=== PATIENT | female | born 2000 | race Caucasian/White ===

== ENCOUNTER 2020-08-07 20:40 | Inpatient (IN) | payer OTHER ==
[2020-08-07] MEDS: LACTATED RINGERS 1,000 ML IV SCH (20:58)
[2020-08-07] MEDS ORDERED: LIDOCAINE 0.5% (PF) 5 MG/ML (50 ML SDV) SQ PRN (20:59)
[2020-08-07] MEDS ORDERED: METHYLERGONOVINE 0.2 MG/ML 1 ML AMP IM PRN (20:59)
[2020-08-07] MEDS ORDERED: CARBOPROST TROMETHAMINE 250 MCG/ML 1 ML AMP IM PRN (20:59)
[2020-08-07] MEDS ORDERED: OXYTOCIN 10 UNIT/ML 1 ML VIAL IM PRN (20:59)
[2020-08-07] MEDS ORDERED: TERBUTALINE 1 MG/ML VIAL SQ PRN (20:59)
[2020-08-07] MEDS ORDERED: OXYTOCIN 30 UNITS/500 ML NS 30 UNIT in SALINE 1 500ML.BAG IV SCH (21:00)
[2020-08-07] MEDS ORDERED: LACTATED RINGERS 1,000 ML IV SCH (21:00)
[2020-08-07 21:08] LABS: Basophils % (A) 0 %; Eosinophils % (A) 0 %; HCT 40.4 % (34.0-46.0); HGB 13.1 gm/dL (11.4-16.0); Lymphocytes # (A) 2.1 k/uL (1.0-4.8); Lymphocytes % (A) 20 %; MCH 26.6 pg (25.0-35.0); MCHC 32.3 g/dL (31.0-37.0); MCV 82.2 fL (80.0-100.0); Mean Platelet Volume 10.7; Monocytes # (A) 0.5 k/uL (0-1.0); Monocytes % (A) 4 %; Neutrophils # (A) 7.7 k/uL (1.3-7.7); Neutrophils % (A) 74 %; Platelet Count 241 k/uL (150-450); RBC 4.92 m/uL (3.80-5.40); RDW 13.5 % (11.5-15.5); WBC 10.4 k/uL (3.8-10.6)
[2020-08-07] MEDS ORDERED: BUTORPHANOL 1 MG/ML 1 ML VIAL IV PRN (21:42)
[2020-08-07 21:47] VITALS: RESP 16
[2020-08-07 21:52] LABS: ALT 56 U/L (4-34); AST 35 U/L (14-36); African American GFR (CKD) >90 (>60 ml/min/1.73 sqM); Blood Urea Nitrogen 11 mg/dL (7-17); LDH 512 U/L (313-618); Non-African American GFR(CKD) >90 (>60 ml/min/1.73 sqM)
[2020-08-07 22:09] LABS: INR 0.9 (<1.2); Partial Thromboplastin Time 24.5 sec (22.0-30.0); Prothrombin Time 9.3 sec (9.0-12.0)
[2020-08-07 23:04] LABS: Appearance,Urine Clear (Clear); Bilirubin,Urine Negative (Negative); Blood,Urine Small (Negative); Color,Urine Yellow; Glucose,Urine (UA) Negative (Negative); Ketones,Urine Negative (Negative); Leukocyte Esterase,Urine Negative (Negative); Mucus,Urine Rare /hpf; Nitrite,Urine Negative (Negative); Protein,Urine 1+ (Negative); RBC,Urine 21 /hpf (0-5); Specific Gravity,Urine 1.024 (1.001-1.035); Squamous Epithelial Cell,Urine 1 /hpf (0-4); Urobilinogen,Urine <2.0 mg/dL (<2.0); WBC,Urine 2 /hpf (0-5)
[2020-08-07 23:07] LABS: Creatinine,Urine Random 147.9 mg/dL; Protein/Creatinine Ratio,Urine 0.426
[2020-08-08] MEDS: LACTATED RINGERS 1,000 ML IV SCH (00:38)
[2020-08-08] MEDS ORDERED: ROPIVACAINE 100 MG, fentaNYL (PF). 200 MCG in SODIUM CHLORIDE 0.9% 76 ML EPIDURAL ONE (01:03)
--- NOTE | 2020-08-08 06:26 | P.HPOB ---
History of Present Illness H&P Date: 08/08/20 Chief Complaint: Contractions This patient is a pleasant 20-year-old 1 para 0 female estimated date of confinement 08/11/2020 estimated gestational age 39-4/7 weeks presents to labor and delivery complaining of contractions. Patient's care has been uncomplicated with the exception of a simple ovarian cyst about 5-6 cm. He also had a choroid plexus cyst was evaluated by maternal medicine and was all negative including a cardiac echo. Patient is also noted to have some elevated blood pressures on admission, preeclampsia labs does show an elevated PC ratio and uric acid of 7.1. These blood pressures however come down and may very well be due to excessive pain. Patient is now 6-7 cm dilated. Review of Systems Genitourinary: Reports Menstruation: Reports amenorrhea Past Medical History Past Medical History: No Reported History History of Any Multi-Drug Resistant Organisms: None Reported Past Surgical History: No Surgical Hx Reported Past Anesthesia/Blood Transfusion Reactions: No Reported Reaction Past Psychological History: No Psychological Hx Reported Smoking Status: Former smoker Past Alcohol Use History: None Reported Past Drug Use History: None Reported - Past Family History Mother Family Medical History: No Reported History Medications and Allergies Home Medications Medication Instructions Recorded Confirmed Type Cholecalciferol (Vitamin D3) 1 tab PO ONCE 08/07/20 08/07/20 History [Vitamin D3] Pnv No.95/Ferrous Fum/Folic AC 1 tab PO ONCE 08/07/20 08/07/20 History [ Multivitamin Tablet] Allergies Allergy/AdvReac Type Severity Reaction Status Date / Time No Known Allergies Allergy Verified 08/07/20 20:54 Exam Vital Signs Temp Pulse Resp BP Pulse Ox 08/07/20 21:22 97.8 F 108 H 16 150/93 98 08/07/20 20:59 97.6 F 108 H 16 150/93 98 Intake and Output 08/07/20 08/07/20 08/08/20 14:59 22:59 06:59 Other: # Voids 1 Weight 94.347 kg - OBG Physical Exam Abdomen: bowel sounds normal, no diffuse tenderness, no bruit present, no guarding noted, no hepatomegaly, no splenomegaly, no mass Vulva: both: normal Vagina: normal moisture, no discharge Cervix: no lesion (Cervix 6-7 cm dilated vertex presentation.), no discharge Uterus: enlarged (Fundal height is consistent with a term ) Results blood work shows she is O positive, rubella immune, RPR is nonreactive, hepatitis B is negative, group B strep was negative, ultrasounds have been normal including a level III ultrasound. Patient does have a 5-6 cm simple ovarian cyst. Result Diagrams: 08/07/20 20:55 08/07/20 21:15 Abnormal Lab Results - Last 24 Hours (Table) 08/07/20 08/07/20 Range/Units 21:15 22:39 ALT 56 H (4-34) U/L Urine Protein 1+ H (Negative) Urine Blood Small H (Negative) Urine RBC 21 H (0-5) /hpf Urine Mucus Rare H (None) /hpf Assessment and Plan Assessment: This is a pleasant 20-year-old 1 para 0 female 39-4/7 weeks gestation admitted in active labor. Patient also has some gestational hypertension and certainly will watch closely for evidence of preeclampsia. Patient also has been meconium-stained fluid. Plan at this time is anticipate vaginal delivery. Alert anesthesia and pediatrics to the meconium-stained fluid at the time of danni back. (1) 39 weeks gestation of Current Visit: Yes Status: Acute Code(s): Z3A.39 - 39 WEEKS GESTATION OF SNOMED Code(s): 80085165 (2) Normal labor Current Visit: Yes Status: Acute Code(s): O80 - ENCOUNTER FOR FULL-TERM UNCOMPLICATED DELIVERY; Z37.9 - OUTCOME OF DELIVERY, UNSPECIFIED SNOMED Code(s): 34936710 (3) Gestational hypertension Current Visit: Yes Status: Acute Code(s): O13.9 - GESTATIONAL HTN W/O SIGNIFICANT PROTEINURIA, UNSP TRIMESTER SNOMED Code(s): 054218936 (4) Thin meconium stained amniotic fluid Current Visit: Yes Status: Acute Code(s): P96.83 - MECONIUM STAINING SNOMED Code(s): 830773570
[2020-08-08] MEDS ORDERED: LANOLIN CREAM 5 GM TUBE TOPICAL PRN (10:48)
[2020-08-08] MEDS ORDERED: bisacodyL 10 MG SUPP RECTAL PRN (10:48)
[2020-08-08] MEDS ORDERED: ZOLPIDEM 5 MG TAB PO PRN (10:48)
[2020-08-08] MEDS ORDERED: HYDROCORTISONE 2.5% RECTAL CREAM 30 GM TUBE RECTAL PRN (10:48)
[2020-08-08] MEDS ORDERED: ACETAMINOPHEN TAB 325 MG TAB PO PRN (10:48)
[2020-08-08] MEDS ORDERED: OXYTOCIN 20 UNITS/1000 ML NS 1,000 ML IV SCH (10:48)
[2020-08-08] MEDS ORDERED: diphenhydrAMINE 50 MG/ML 1 ML VIAL IVP PRN (10:48)
[2020-08-08] MEDS ORDERED: BENZOCAINE/MENTHOL SPRAY 1 GM/SPRAY AEROSOL TOPICAL PRN (10:48)
[2020-08-08] MEDS ORDERED: SIMETHICONE 80 MG CHEWABLE PO PRN (10:48)
[2020-08-08] MEDS ORDERED: diphenhydrAMINE 25 MG CAP PO PRN (10:48)
[2020-08-08] MEDS: IBUPROFEN 600 MG TAB PO PRN ×3 (12:04→23:56)
[2020-08-08] MEDS: SENNOSIDES-DOCUSATE SODIUM 1 EACH TAB PO SCH ×2 (19:43→20:07)
--- NOTE | 2020-08-09 05:46 | P.PROBDLV ---
Vaginal Delivery Note - . Vaginal Delivery Note: Normal spontaneous vaginal delivery viable female Apgars 9 and 9 delivery time was 0952 hrs. Please see dictated H&P for intimate details of this patient's admission. Brief summary this pleasant 20-year-old 1 para 0 female 39-4/7 weeks gestation admitted with spontaneous rupture membranes in active labor. Patient is noted to have thin meconium-stained fluid. Patient's labor progresses quickly and she gets to complete. Pushes the head to the perineum. She does have some deep variable decelerations with pushing and therefore this reason a midline episiotomy is made. We then have controlled delivery of infant's head over the perineum. There is a double nuchal cord which is reduced. Mouth and nares are bulb suctioned. Anesthesia is present for delivery. Gentle downward traction we then have deliver the anterior and posterior shoulder and rest this 's body. This is a vigorous viable female Apgars 9 and 9 delivery time was 0952 hrs. After delivery of the the umbilical cord is doubly clamped and cut and appears to be trivascular. Placenta spontaneously delivered intact. There is a second-degree midline laceration is repaired with 3-0 Vicryl usual fashion excellent reapproximation is noted CORRECT 3. There are no complications. Infant and mother are stable in the delivery room.
--- NOTE | 2020-08-09 05:49 | P.PNOBGVD ---
Subjective - Subjective Patient reports: Reports appetite normal, Reports voiding normally, Reports pain well controlled, Reports ambulating normally : doing well Objective - Latest Vital Signs Latest vital signs: Vital Signs Temp Pulse Resp BP 08/09/20 03:23 97.6 F 81 16 115/76 08/08/20 23:43 97.9 F 76 16 122/83 08/08/20 20:00 97.3 F L 86 16 123/86 08/08/20 16:00 98.0 F 79 16 135/91 08/08/20 12:30 99.3 F 113 H 16 110/84 08/08/20 11:59 121 H 16 120/73 08/08/20 11:25 114 H 16 119/56 08/08/20 11:05 115 H 16 115/63 08/08/20 10:50 113 H 16 110/67 08/08/20 10:35 109 H 16 118/61 08/08/20 10:20 99.3 F 115 H 16 118/61 Intake and Output 08/08/20 08/08/20 08/09/20 14:59 22:59 06:59 Output Total 500 Balance -500 Output: Estimated Blood Loss 500 Other: # Voids 1 1 2 - Exam Lungs: bilateral: normal Chest: Normal S1, Normal S2 Extremities: Present: normal Abdomen: Present: normal appearance, soft Uterus: Present: normal, firm Assessment and Plan Assessment: day #1. Patient is resting without complaints. Vital signs are stable and she is afebrile. Blood pressures very good. Uterus is firm nontender she's having normal lochia. My impression is a normal course. At this time there is no evidence of gestational hypertension or preeclampsia. We'll continue to watch her and continue routine care. Most likely discharge home tomorrow (1) 39 weeks gestation of Current Visit: Yes Status: Acute Code(s): Z3A.39 - 39 WEEKS GESTATION OF SNOMED Code(s): 38369315 (2) Normal labor Current Visit: Yes Status: Acute Code(s): O80 - ENCOUNTER FOR FULL-TERM UNCOMPLICATED DELIVERY; Z37.9 - OUTCOME OF DELIVERY, UNSPECIFIED SNOMED Code(s): 38391778 (3) Gestational hypertension Current Visit: Yes Status: Acute Code(s): O13.9 - GESTATIONAL HTN W/O SIGNIFICANT PROTEINURIA, UNSP TRIMESTER SNOMED Code(s): 072368422 (4) Thin meconium stained amniotic fluid Current Visit: Yes Status: Acute Code(s): P96.83 - MECONIUM STAINING SNOMED Code(s): 959060143
[2020-08-09 07:30] LABS: Basophils % (A) 0 %; Eosinophils % (A) 0 %; HCT 29.5 % (34.0-46.0); Hypochromasia Slight; Lymphocytes # (A) 2.7 k/uL (1.0-4.8); Lymphocytes % (A) 16 %; MCH 27.8 pg (25.0-35.0); MCHC 33.2 g/dL (31.0-37.0); MCV 83.6 fL (80.0-100.0); Mean Platelet Volume 10.4; Monocytes # (A) 0.4 k/uL (0-1.0); Monocytes % (A) 2 %; Neutrophils # (A) 13.8 k/uL (1.3-7.7); Neutrophils % (A) 80 %; Platelet Count 186 k/uL (150-450); RBC 3.53 m/uL (3.80-5.40); RDW 13.6 % (11.5-15.5); WBC 17.2 k/uL (3.8-10.6)
[2020-08-09 08:00] LABS: HGB 9.8 gm/dL (11.4-16.0)
[2020-08-09] MEDS: IBUPROFEN 600 MG TAB PO PRN ×2 (10:19→19:26)
[2020-08-09] MEDS: SENNOSIDES-DOCUSATE SODIUM 1 EACH TAB PO SCH ×2 (15:24→19:26)
--- NOTE | 2020-08-09 16:52 | P.MSEPDOC ---
Presenting Problems - Arrival Data Date of Arrival on Unit: 08/07/20 Time of Arrival on Unit: 20:34 Mode of Transport: Ambulatory - Complaint OB-Reason for Admission/Chief Complaint: Possible Onset of Labor Comment: Pt states contractions getting stronger around 1730, pt denies SROM, pain 5/10. Medical History - Information : 1 Para: 0 Term: 0 : 0 Abortions: Spontaneous or Elective: 0 Number of Living Children: 0 - Gestational Age Gestational Age by DEEPTI (wks/days): 39 Weeks and 3 Days Review of Systems - Review of Systems Constitutional: No problems Breast: No problems ENT: No problems Cardiovascular: No problems Respiratory: No problems Gastrointestinal: No problems Genitourinary: No problems Musculoskeletal: No problems Neurological: No problems Skin: No problems Vital Signs - Temperature Temperature: 98.1 F Temperature Source: Oral - Pulse Right Brachial Pulse Rate: 107 Pulse Assessment Method: Automatic Cuff - Respirations Respiratory Rate: 16 Oxygen Delivery Method: Room Air - Blood Pressure Right Arm Blood Pressure: 140/91 Blood Pressure Mean: 107 Blood Pressure Source: Automatic Cuff Medical Screen Scoring (Pre) - Cervical Exam Dilation: 1-3 cm = 1 Effacement: More than 50% = 2 Membranes: Intact - Uterine Contractions Frequency: > or = 36 weeks =2 Duration: > 40 seconds = 2 Intensity: N/A - Maternal Vital Signs Maternal Temperature: N/A Maternal Blood Pressure: Systolic >139 = 2 Signs of Preeclampsia: N/A Maternal Respirations: N/A - Maternal Trauma Maternal Trauma: N/A - Assessment - Baby A Baseline FHR: 130 Heart Rate - NICHD Category: Category I (Normal) = 0 - Total Score - Baby A Total Score - Baby A: 9 - Total Score - Baby B Total Score - Baby B: 9 - Total Score - Baby C Total Score - Baby C: 9 - Level of Risk - Baby A Level of Risk - Baby A: Medium (6-9) - Level of Risk - Baby B Level of Risk - Baby B: Medium (6-9) - Level of Risk - Baby C Level of Risk - Baby C: Medium (6-9) Physician Notification (Pre) - Physician Notified Physician Notified Date: 08/07/20 Physician Notified Time: 20:59 New Order Received: Yes - Notification Comment Comment: Admit, preeclampsia labs. Disposition - Disposition OB Disposition: Admit, LDRP Suite Discharge Date: 08/07/20 Discharge Time: 20:59 I agree with the RN Medical Screening Exam: Yes Risk & Benefit of care provided described in d/c instruction: Yes Diagnosis: ENCOUNTER FOR FULL-TERM UNCOMPLICATED DELIVERY
--- NOTE | 2020-08-10 06:57 | P.PNOBGVD ---
Subjective - Subjective Patient reports: Reports appetite normal, Reports voiding normally, Reports pain well controlled, Reports ambulating normally : doing well, in NICU Objective - Latest Vital Signs Latest vital signs: Vital Signs Temp Pulse Resp BP 08/09/20 23:35 97.8 F 81 16 137/74 08/09/20 16:52 98.1 F 107 H 16 140/91 08/09/20 15:16 98.1 F 107 H 16 140/91 08/09/20 10:22 98.2 F 89 16 125/81 Intake and Output 08/09/20 08/09/20 08/10/20 14:59 22:59 06:59 Other: # Voids 1 1 1 - Exam Lungs: bilateral: normal Chest: Normal S1, Normal S2 Extremities: Present: normal Abdomen: Present: normal appearance, soft Uterus: Present: normal, firm - Labs Labs: Abnormal Lab Results - Last 24 Hours (Table) 08/09/20 Range/Units 07:20 WBC 17.2 H (3.8-10.6) k/uL RBC 3.53 L (3.80-5.40) m/uL Hgb 9.8 L D (11.4-16.0) gm/dL Hct 29.5 L (34.0-46.0) % Neutrophils # 13.8 H (1.3-7.7) k/uL Assessment and Plan Assessment: day #2. Patient is resting without new complaints. Patient has some mild blood pressure elevations but nothing requiring treatment and is asymptomatic. Baby is still in special care but also be discharged soon as well. Uterus is firm nontender she's having normal lochia. My impression this is a normal post course. Patient's felt to be stable for discharge home follow up with me. Continue routine care (1) 39 weeks gestation of Current Visit: Yes Status: Acute Code(s): Z3A.39 - 39 WEEKS GESTATION OF SNOMED Code(s): 25847271 (2) Normal labor Current Visit: Yes Status: Acute Code(s): O80 - ENCOUNTER FOR FULL-TERM UNCOMPLICATED DELIVERY; Z37.9 - OUTCOME OF DELIVERY, UNSPECIFIED SNOMED Code(s): 97856574 (3) Gestational hypertension Current Visit: Yes Status: Acute Code(s): O13.9 - GESTATIONAL HTN W/O SIGNIFICANT PROTEINURIA, UNSP TRIMESTER SNOMED Code(s): 531096397 (4) Thin meconium stained amniotic fluid Current Visit: Yes Status: Acute Code(s): P96.83 - MECONIUM STAINING SNOMED Code(s): 552655858
--- NOTE | 2020-08-10 07:01 | P.DS ---
Providers Date of admission: 08/07/20 20:40 Expected date of discharge: 08/10/20 Attending physician: Hussain Irby Primary care physician: Stated None - Discharge Diagnosis(es) (1) 39 weeks gestation of Current Visit: Yes Status: Acute (2) Normal labor Current Visit: Yes Status: Acute (3) Gestational hypertension Current Visit: Yes Status: Acute (4) Thin meconium stained amniotic fluid Current Visit: Yes Status: Acute Plan - Discharge Summary New Discharge Prescriptions: New Ibuprofen [Motrin] 600 mg PO Q6HR PRN #30 tab PRN Reason: Mild Pain Or Fever >= 100.5 No Action Pnv No.95/Ferrous Fum/Folic AC [ Multivitamin Tablet] 1 tab PO ONCE Cholecalciferol (Vitamin D3) [Vitamin D3] 1 tab PO ONCE Discharge Medication List Cholecalciferol (Vitamin D3) [Vitamin D3] 1 tab PO ONCE 08/07/20 [History] Pnv No.95/Ferrous Fum/Folic AC [ Multivitamin Tablet] 1 tab PO ONCE 08/07/20 [History] Ibuprofen [Motrin] 600 mg PO Q6HR PRN #30 tab 08/10/20 [Rx] Follow up Appointment(s)/Referral(s): Hussain Irby MD [STAFF PHYSICIAN] - 09/19/20 10:15 am Patient Instructions/Handouts: Vaginal Delivery (DC) Activity/Diet/Wound Care/Special Instructions: No intercourse or anything per vagina for 6 weeks. Please call if any fever, chills, excessive vaginal bleeding, and/or abdominal pain. Discharge Disposition: HOME SELF-CARE
[2020-08-10] MEDS: SENNOSIDES-DOCUSATE SODIUM 1 EACH TAB PO SCH (12:39)
[2020-08-10 16:46] VITALS: BP 120/66; PULSE 83; TEMP 98
[2020-08-10] MEDS: IBUPROFEN 600 MG TAB PO PRN (18:57)
== END 2020-08-10 19:04 | disposition home or self-care (01) | DRG 807 ==
LOC: 4FBP 20:40
PROVIDERS: ADMIT Obstetrics & Gynecology; ATTEND Obstetrics & Gynecology
PROC: 00HU33Z Insertion of Infusion Device into Spinal Canal, Percutaneous Approach (ICD-10-PCS; 2020-08-08)
PROC: 3E0R3BZ Introduction of Anesthetic Agent into Spinal Canal, Percutaneous Approach (ICD-10-PCS; 2020-08-08)
PROC: 10E0XZZ Delivery of Products of Conception, External Approach (ICD-10-PCS; principal; 2020-08-09)
PROC: 0W8NXZZ Division of Female Perineum, External Approach (ICD-10-PCS; principal; 2020-08-09)
PROC: 0KQM0ZZ Repair Perineum Muscle, Open Approach (ICD-10-PCS; principal; 2020-08-09)
DX: O13.4 Gestational [pregnancy-induced] hypertension without significant proteinuria, complicating childbirth (principal); Z37.0 Single live birth; O77.0 Labor and delivery complicated by meconium in amniotic fluid; O76 Abnormality in fetal heart rate and rhythm complicating labor and delivery; O69.81X0 Labor and delivery complicated by cord around neck, without compression, not applicable or unspecified; O70.1 Second degree perineal laceration during delivery; O34.83 Maternal care for other abnormalities of pelvic organs, third trimester; N83.299 Other ovarian cyst, unspecified side; Z3A.39 39 weeks gestation of pregnancy; Z79.899 Other long term (current) drug therapy; Z87.891 Personal history of nicotine dependence
CPT/HCPCS: 59025; 81001; 82565; 82570; 83615; 84156; 84450; 84460; 84520; 84550; 85025; 85384; 85610; 85730; 86850; 86900; 86901; 88307; 99213

== ENCOUNTER → 2020-09-28 | Outpatient (CLI) | payer OTHER ==
--- NOTE | 2020-09-29 06:54 | US ---
EXAMINATION TYPE: US transvaginal DATE OF EXAM: 09/28/2020 COMPARISON: NONE CLINICAL HISTORY: N83.0 OVARIAN CYST. Patient stated has left ovarian cyst noted during OB US last ye ar at another location; G1P; patient denies pain TECHNIQUE: Transvaginal (TV) per order Date of LMP: 09/28/2020 EXAM MEASUREMENTS: Uterus: 6.6 x 5.4 x 3.9 cm Endometrial Stripe: 0.9 cm Right Ovary: 2.4 x 3.1 x 2.2 cm Left Ovary: 5.0 x 4.4 x 4.5 cm 1. Uterus: Anteverted 2. Endometrium: thickness is wnl for Day 1 LMP 3. Right Ovary: follicular cyst = 1.8 x 2.6 x 1.9cm 4. Left Ovary: complex large follicular cyst noted = 4.5 x 3.6 x 4.0cm 5. Bilateral Adnexa: wnl 6. Posterior cul-de-sac: wnl 7. Color flow is imaged in bilateral ovary. IMPRESSION: 1. Complex cyst left ovary likely functional in nature which can be confirmed with follow-up study in 6 weeks.
== END | disposition home or self-care (01) ==
LOC: RADUSWWP 16:58
PROVIDERS: ATTEND Obstetrics & Gynecology
DX: N83.292 Other ovarian cyst, left side (principal)
CPT/HCPCS: 76830

== ENCOUNTER 2021-09-12 06:00 | Inpatient (IN) | payer OTHER ==
--- NOTE | 2021-09-11 07:42 | P.HPOB ---
History of Present Illness H&P Date: 09/11/21 Chief Complaint: Intrauterine growth restriction This patient is a pleasant 21-year-old 2 para 1 female estimated date of confinement 09/27/2021 estimated gestational age 37-6/7 weeks who presents to labor and delivery for induction of labor secondary to suspected symmetrical IUGR. Patient's history is such that she has a brother who had a lethal heart defect and therefore she was referred to maternal- medicine is had normal anatomy evaluation including a cardiac echo. Patient hours watched with growth ultrasounds and has been measuring small. Initially she was between the 10th and 25th percentile however most recently her ultrasound showed 5 lbs. 6 oz. which placed her at the 10th percentile and the radiologist felt was consistent with symmetrical IUGR. Per recommendations I have recommended she proceed with delivery at this time. care otherwise is uncomplicated. Patient's had a previous term vaginal delivery. Review of Systems Genitourinary: Reports Menstruation: Reports amenorrhea Past Medical History Past Medical History: No Reported History History of Any Multi-Drug Resistant Organisms: None Reported Past Surgical History: No Surgical Hx Reported Past Anesthesia/Blood Transfusion Reactions: No Reported Reaction Past Psychological History: No Psychological Hx Reported Smoking Status: Former smoker Past Alcohol Use History: None Reported Past Drug Use History: None Reported - Past Family History Mother Family Medical History: No Reported History Medications and Allergies Home Medications Medication Instructions Recorded Confirmed Type Cholecalciferol (Vitamin D3) 1 tab PO ONCE 08/07/20 08/07/20 History [Vitamin D3] Pnv No.95/Ferrous Fum/Folic AC 1 tab PO ONCE 08/07/20 08/07/20 History [ Multivitamin Tablet] Ibuprofen [Motrin] 600 mg PO Q6HR PRN #30 tab 08/10/20 Rx Allergies Allergy/AdvReac Type Severity Reaction Status Date / Time No Known Allergies Allergy Verified 08/07/20 20:54 Exam - OBG Physical Exam Abdomen: bowel sounds normal, no diffuse tenderness, no bruit present, no guarding noted, no hepatomegaly, no splenomegaly, no mass Vulva: both: normal Vagina: normal moisture, no discharge Cervix: no lesion, no discharge Uterus: enlarged (Fundal height 36 cm) Results blood work shows she is oh positive, rubella immune, RPR nonreactive, hepatitis B negative, group B strep was negative, Glucola was abnormal with a normal three-hour gtt., ultrasounds as above. Patient's had a normal cardiac echo and level III ultrasound. Most recent ultrasound put the baby of 5 lbs. 6 oz. which the 10th percentile and reported symmetrical IUGR. Assessment and Plan Assessment: This is a pleasant 21-year-old 2 para 1 female 37-6/7 weeks gestation with suspected symmetrical IUGR with planned induction of labor. I discussed the clinical findings with Aline and she understands the indications and reasons for delivery at this time. Plan is induction of labor and anticipate vaginal delivery. (1) 38 weeks gestation of Status: Acute Code(s): Z3A.38 - 38 WEEKS GESTATION OF SNOMED Code(s): 00283943 (2) IUGR (intrauterine growth restriction) Status: Acute Code(s): SNT2716 - SNOMED Code(s): 28881525
[~2021-09-12 06:00] MED LIST: CARBOPROST TROMETHAMINE 250 MCG/ML 1 ML AMP IM PRN; LIDOCAINE 1% (PF) 10 MG/ML (30 ML SDV) SQ PRN; METHYLERGONOVINE 0.2 MG/ML 1 ML AMP IM PRN; OXYTOCIN 10 UNIT/ML 1 ML VIAL IM PRN; OXYTOCIN 30 UNITS/500 ML NS 30 UNIT in SALINE 1 500ML.BAG IV SCH; TERBUTALINE 1 MG/ML VIAL SQ PRN
[2021-09-12] MEDS: LACTATED RINGERS 1,000 ML IV SCH ×3 (06:36→21:29)
[2021-09-12 06:39] LABS: Basophils % (A) 0 %; Eosinophils # (A) 0.1 k/uL (0-0.7); Eosinophils % (A) 1 %; HCT 36.4 % (34.0-46.0); HGB 12.1 gm/dL (11.4-16.0); Lymphocytes # (A) 1.8 k/uL (1.0-4.8); Lymphocytes % (A) 23 %; MCH 26.7 pg (25.0-35.0); MCHC 33.2 g/dL (31.0-37.0); MCV 80.6 fL (80.0-100.0); Mean Platelet Volume 8.9; Monocytes # (A) 0.5 k/uL (0-1.0); Monocytes % (A) 7 %; Neutrophils # (A) 5.3 k/uL (1.3-7.7); Neutrophils % (A) 68 %; Platelet Count 237 k/uL (150-450); RBC 4.51 m/uL (3.80-5.40); WBC 7.8 k/uL (3.8-10.6)
[2021-09-12] MEDS ORDERED: ROPIVACAINE 100 MG, fentaNYL (PF). 200 MCG in SODIUM CHLORIDE 0.9% 76 ML EPIDURAL ONE (09:42)
--- NOTE | 2021-09-12 12:39 | P.PROBDLV ---
Vaginal Delivery Note - . Vaginal Delivery Note: Normal vaginal delivery viable female Apgars 8 and 9 delivery time is 1217 hrs. Please see dictated H&P for intimate details of this patient's admission. Brief summary this is a pleasant 21-year-old 2 para 1 female 37-6/7 weeks gestation admitted to labor and delivery for induction of labor secondary to suspected symmetric IUGR. On admission patient is 3 cm dilated has artificial rupture membranes for clear fluid. Labor is induced with Pitocin per protocol. Patient's labor progresses normally and she does get an epidural for pain control. She gets to complete pushes a proximally 1 time. She pushes the head over the intact perineum. Mouth and nares are bulb suctioned. Infant's presentation is straight occiput anterior. There is no evidence of nuchal cord. With gentle downward traction we then have deliver the anterior and posterior shoulder and rest this infant's body. This is a vigorous viable female infant Apgars are 8 and 9 delivery time is 1217 hrs. Infant's cord is doubly clamped and cut immediately due to history of jaundice with her first baby. After delivery of the the is laid on the mother's abdomen. The placenta is then spontaneously delivered intact. Inspection of perineum shows a first-degree posterior laceration is repaired with 3-0 Vicryl in the usual fashion. She does have bilateral periurethral abrasions that do not require sutures. All counts are correct 3. Estimated blood loss is 150 mL. There are no complications. and mother are stable delivery room.
[2021-09-12] MEDS ORDERED: ACETAMINOPHEN TAB 325 MG TAB PO PRN (12:56)
[2021-09-12] MEDS ORDERED: diphenhydrAMINE 50 MG/ML 1 ML VIAL IVP PRN (12:56)
[2021-09-12] MEDS ORDERED: bisacodyL 10 MG SUPP RECTAL PRN (12:56)
[2021-09-12] MEDS ORDERED: OXYTOCIN 30 UNITS/500 ML NS 30 UNIT in SALINE 1 500ML.BAG IV SCH (12:56)
[2021-09-12] MEDS ORDERED: diphenhydrAMINE 25 MG CAP PO PRN (12:56)
[2021-09-12] MEDS ORDERED: BENZOCAINE/MENTHOL SPRAY 1 GM/SPRAY AEROSOL TOPICAL PRN (12:56)
[2021-09-12] MEDS ORDERED: ZOLPIDEM 5 MG TAB PO PRN (12:56)
[2021-09-12] MEDS ORDERED: SIMETHICONE 80 MG CHEWABLE PO PRN (12:56)
[2021-09-12] MEDS ORDERED: HYDROCORTISONE 2.5% RECTAL CREAM 30 GM TUBE RECTAL PRN (12:56)
[2021-09-12] MEDS ORDERED: LANOLIN CREAM 5 GM TUBE TOPICAL PRN (12:56)
[2021-09-12] MEDS: IBUPROFEN 600 MG TAB PO PRN (13:27)
[2021-09-12] MEDS: SENNOSIDES-DOCUSATE SODIUM 1 EACH TAB PO SCH ×2 (20:04→21:28)
[2021-09-13] MEDS: IBUPROFEN 600 MG TAB PO PRN ×4 (03:23→23:07)
--- NOTE | 2021-09-13 06:04 | P.PNOBGVD ---
Subjective - Subjective Patient reports: Reports appetite normal, Reports voiding normally, Reports pain well controlled, Reports ambulating normally : doing well Objective - Latest Vital Signs Latest vital signs: Vital Signs Temp Pulse Pulse Resp BP Pulse Ox 09/13/21 04:00 97.7 F 75 14 115/68 98 09/13/21 00:00 97.4 F L 80 16 111/68 96 09/12/21 20:00 97.6 F 91 16 118/75 97 09/12/21 15:15 98.1 F 88 16 146/54 09/12/21 14:28 97.7 F 92 16 129/68 09/12/21 14:13 94 16 128/61 09/12/21 13:37 85 16 143/66 09/12/21 13:22 93 16 147/82 09/12/21 13:13 90 16 143/76 09/12/21 12:52 90 16 151/85 09/12/21 12:37 83 16 149/83 09/12/21 06:15 97.8 F 114 H 16 137/74 100 Intake and Output 09/12/21 09/12/21 09/13/21 14:59 22:59 06:59 Output Total 150 Balance -150 Output: Estimated Blood Loss 150 Other: # Voids 2 - Exam Lungs: bilateral: normal Chest: Normal S1, Normal S2 Extremities: Present: normal Abdomen: Present: normal appearance, soft Uterus: Present: normal, firm Assessment and Plan Assessment: day #1. Patient is resting without complaints and wishes to go home. Vital signs are stable she is afebrile. Uterus is firm nontender and she is having normal lochia. I impression this is a normal course. Plan is to continue routine care discharge home later today (1) 38 weeks gestation of Current Visit: No Status: Acute Code(s): Z3A.38 - 38 WEEKS GESTATION OF SNOMED Code(s): 42904750 (2) IUGR (intrauterine growth restriction) Current Visit: No Status: Acute Code(s): XYN0596 - SNOMED Code(s): 30640593
--- NOTE | 2021-09-13 06:08 | P.DS ---
Providers Date of admission: 09/12/21 06:06 Expected date of discharge: 09/13/21 Attending physician: Hussain Irby Primary care physician: Stated None - Discharge Diagnosis(es) (1) 38 weeks gestation of Current Visit: No Status: Acute (2) IUGR (intrauterine growth restriction) Current Visit: No Status: Acute Hospital Course: Please see dictated H&P for intimate details of this patient's admission. Brief summary this is a pleasant 21-year-old 2 para 1 female 37-6/7 weeks gestation admitted to labor and delivery with suspected symmetric IUGR. Patient is admitted she is uncomplicated induction of labor quickly goes on to have a vaginal delivery viable female Flores dictated delivery note. day #1 patient is doing well wishes to go home. Patient's felt be stable for discharge home follow up with me in 6 weeks Procedures: Induction of labor and normal vaginal delivery Patient Condition at Discharge: Good Plan - Discharge Summary New Discharge Prescriptions: New Ibuprofen [Motrin] 600 mg PO Q6HR PRN #30 tab PRN Reason: Pain No Action Pnv No.95/Ferrous Fum/Folic AC [ Multivitamin Tablet] 1 tab PO ONCE Discharge Medication List Pnv No.95/Ferrous Fum/Folic AC [ Multivitamin Tablet] 1 tab PO ONCE 08/07/20 [History] Ibuprofen [Motrin] 600 mg PO Q6HR PRN #30 tab 09/13/21 [Rx] Follow up Appointment(s)/Referral(s): Hussain Irby MD [STAFF PHYSICIAN] - 10/21/21 11:15 am Patient Instructions/Handouts: Vaginal Delivery (DC) Activity/Diet/Wound Care/Special Instructions: No intercourse or anything per vagina for 6 weeks. Please call if any fever, chills, excessive vaginal bleeding, and/or abdominal pain. Discharge Disposition: HOME SELF-CARE
[2021-09-13] MEDS: SENNOSIDES-DOCUSATE SODIUM 1 EACH TAB PO SCH ×2 (08:07→19:42)
[2021-09-14 00:35] VITALS: TEMP 97.9
[2021-09-14 09:02] VITALS: BP 123/76; PULSE 84; RESP 18
[2021-09-14] MEDS: SENNOSIDES-DOCUSATE SODIUM 1 EACH TAB PO SCH (09:02)
--- NOTE | 2021-09-14 10:24 | P.DS ---
Providers Date of admission: 09/12/21 06:06 Expected date of discharge: 09/14/21 Attending physician: Hussain Irby Primary care physician: Stated None Hospital Course: Patient status baby's bilirubin was up. She will be discharged home today there are no changes from yesterday's dictation from Dr. Massey Patient Condition at Discharge: Good Plan - Discharge Summary New Discharge Prescriptions: New Ibuprofen [Motrin] 600 mg PO Q6HR PRN #30 tab PRN Reason: Pain No Action Pnv No.95/Ferrous Fum/Folic AC [ Multivitamin Tablet] 1 tab PO ONCE Discharge Medication List Pnv No.95/Ferrous Fum/Folic AC [ Multivitamin Tablet] 1 tab PO ONCE 08/07/20 [History] Ibuprofen [Motrin] 600 mg PO Q6HR PRN #30 tab 09/13/21 [Rx] Follow up Appointment(s)/Referral(s): Hussain Irby MD [STAFF PHYSICIAN] - 10/21/21 11:15 am Patient Instructions/Handouts: Vaginal Delivery (DC) Activity/Diet/Wound Care/Special Instructions: No intercourse or anything per vagina for 6 weeks. Please call if any fever, chills, excessive vaginal bleeding, and/or abdominal pain. Discharge Disposition: HOME SELF-CARE
[2021-09-14] MEDS: IBUPROFEN 600 MG TAB PO PRN (12:30)
== END 2021-09-14 14:27 | disposition home or self-care (01) | DRG 807 ==
LOC: 4FBP 06:06
PROVIDERS: ADMIT Obstetrics & Gynecology; ATTEND Obstetrics & Gynecology
PROC: 10E0XZZ Delivery of Products of Conception, External Approach (ICD-10-PCS; principal; 2021-09-12)
PROC: 10907ZC Drainage of Amniotic Fluid, Therapeutic from Products of Conception, Via Natural or Artificial Opening (ICD-10-PCS; 2021-09-12)
PROC: 0HQ9XZZ Repair Perineum Skin, External Approach (ICD-10-PCS; 2021-09-12)
PROC: 3E033VJ Introduction of Other Hormone into Peripheral Vein, Percutaneous Approach (ICD-10-PCS; 2021-09-12)
DX: O36.5930 Maternal care for other known or suspected poor fetal growth, third trimester, not applicable or unspecified (principal); O70.0 First degree perineal laceration during delivery; O71.82 Other specified trauma to perineum and vulva; Z37.0 Single live birth; Z3A.38 38 weeks gestation of pregnancy; Z87.891 Personal history of nicotine dependence
CPT/HCPCS: 85025; 86850; 86900; 86901; 88307

== ENCOUNTER 2024-07-17 06:40 | Emergency (ER) | payer OTHER ==
--- NOTE | 2024-07-17 07:06 | ED ---
Headache HPI - General Chief Complaint: Headache Stated Complaint: Headache Time Seen by Provider: 07/17/24 07:01 Source: patient, RN notes reviewed Mode of arrival: ambulatory Limitations: no limitations - History of Present Illness Initial Comments: 23 year old female presenting to the ER for evaluation of a headache. Patient reports that last 07-09-2024, she had a "24-hour bug". She states she recovered the next day and about 3 days later on Thursday she started to have myalgias, fevers, ear pain and sore throat. The symptoms persisted for about 3 days. She states for the past 24 hours she has been having a persistent headache. She states it feels like her "brain is being banged against her skull" on the inside. She denies any injuries or traumas to the head. She admits to mild photophobia and nausea. Denies dizziness, lightheadedness, vomiting or weakness. She has tried taking [id number] Sudafed, Motrin 800 and a family members muscle relaxers without relief. She denies any chest pain, shortness of breath, abdominal pain, constipation/diarrhea, urinary complaints or peripheral edema. - Related Data Home Medications Medication Instructions Recorded Confirmed Pnv No.95/Ferrous Fum/Folic AC 1 tab PO ONCE 08/07/20 09/12/21 [ Multivitamin Tablet] Previous Rx's Medication Instructions Recorded Ibuprofen [Motrin] 600 mg PO Q6HR PRN #30 tab 09/13/21 Ondansetron Odt [Zofran Odt] 4 mg PO Q8HR PRN #10 tab 07/17/24 Allergies Allergy/AdvReac Type Severity Reaction Status Date / Time No Known Allergies Allergy Verified 07/17/24 06:48 Review of Systems ROS Statement: Those systems with pertinent positive or pertinent negative responses have been documented in the HPI. ROS Other: All systems not noted in ROS Statement are negative. Past Medical History Past Medical History: No Reported History History of Any Multi-Drug Resistant Organisms: None Reported Past Surgical History: No Surgical Hx Reported Past Anesthesia/Blood Transfusion Reactions: No Reported Reaction Past Psychological History: No Psychological Hx Reported Smoking Status: Former smoker Past Alcohol Use History: None Reported Past Drug Use History: None Reported - Past Family History Mother Family Medical History: No Reported History General Exam Limitations: no limitations General appearance: alert, in no apparent distress Head exam: Present: atraumatic, normocephalic, normal inspection Eye exam: Present: normal appearance, PERRL, EOMI. Absent: scleral icterus, conjunctival injection, periorbital swelling Pupils: Present: normal accommodation ENT exam: Present: normal exam, normal oropharynx, mucous membranes moist, TM's normal bilaterally Neck exam: Present: normal inspection. Absent: tenderness, meningismus, lymphadenopathy Respiratory exam: Present: normal lung sounds bilaterally. Absent: respiratory distress, wheezes, rales, rhonchi, stridor Cardiovascular Exam: Present: regular rate, normal rhythm, normal heart sounds. Absent: systolic murmur, diastolic murmur, rubs, gallop, clicks Neurological exam: Present: alert, oriented X3, CN II-XII intact Skin exam: Present: warm, dry, intact, normal color. Absent: rash Course Vital Signs 07/17/24 07/17/24 06:47 08:47 Temperature 98.3 F 98.1 F Pulse Rate 79 62 Respiratory 18 16 Rate Blood Pressure 129/78 115/59 O2 Sat by Pulse 98 98 Oximetry Medical Decision Making - Medical Decision Making Was pt. sent in by a medical professional or institution (, PA, GROUND [employer], urgent care, hospital, or group home...) When possible be specific @ -No Did you speak to anyone other than the patient for history (EMS, parent, family, police, friend...)? What history was obtained from this source @ -No Did you review nursing and triage notes (agree or disagree)? Why? @ -I reviewed and agree with nursing and triage notes Were old charts reviewed (outside hosp., previous admission, EMS record, old E KG, old radiological studies, urgent care reports/EKG's, group home records)? Report findings @ -No old charts were reviewed Differential Diagnosis (chest pain, altered mental status, abdominal pain women, abdominal pain men, vaginal bleeding, weakness, fever, dyspnea, syncope, headache, dizziness, GI bleed, back pain, seizure, CVA, palpatations, mental health, musculoskeletal)? @ -Differential Headache:Migraine, tension, cluster, carbon monoxide, central venous thrombosis, pension karma temporal arteritis, acute closure glaucoma, intercranial hemorrhage, mastoiditis, sinusitis, head injury, this is not meant to be an all-inclusive list. EKG interpreted by me (3pts min.). @ -None done X-rays interpreted by me (1pt min.). @ -None done CT interpreted by me (1pt min.). @ -None done U/S interpreted by me (1pt. min.). @ -None done What testing was considered but not performed or refused? (CT, X-rays, U/S, labs)? Why? @ -CT brain considered but not performed as patient symptoms believed to be more viral in nature. Symptoms did improve after medication. Shared decision making utilized. Risk-benefit ratio discussed with patient who is in agreements to forego CT scan at this time. What meds were considered but not given or refused? Why? @ -None Did you discuss the management of the patient with other professionals (professionals i.e. , PA, [employer], lab, RT, psych nurse, licensed clinical social worker, sterile process coordinator, teacher, security police officer, home health care case manager)? Give summary @ -No Was smoking cessation discussed for >3mins.? @ -No Was critical care preformed (if so, how long)? @ -No Were there social determinants of health that impacted care today? How? (Homelessness, low income, unemployed, alcoholism, drug addiction, transportation, low edu. Level, literacy, decrease access to med. care, [place] [facility], rehab)? @ -No Was there de-escalation of care discussed even if they declined (Discuss DNR or withdrawal of care, Hospice)? DNR status @ -No What co-morbidities impacted this encounter? (DM, HTN, Smoking, COPD, CAD, Cancer, CVA, ARF, Chemo, Hep., AIDS, mental health diagnosis, sleep apnea, morb id obesity)? @ -None Was patient admitted / discharged? Hospital course, mention meds given and rou te, prescriptions, significant lab abnormalities, going to OR and other pertinent info. @ -Discharge. 23-year-old female presenting to the ER for evaluation of headache. History and physical exam completed. Vitals stable. No acute neurological findings on exam. No temporal tenderness. Laboratory studies unremarkable. hCG negative. Viral swabs negative. Patient received symptom atic control in the ER with IV fluids, Reglan and Tylenol. Patient reporting improvement of headache and is asking for discharge upon reevaluation. Strict return parameters discussed. Patient discharged in stable condition with follow-up to PCP. Patient verbally expressed understanding and agreement with care plan. Case discussed with ED attending, Dr. Esposito. Undiagnosed new problem with uncertain prognosis? @ -No Drug Therapy requiring intensive monitoring for toxicity (Heparin, Nitro, Insulin, Cardizem)? @ -No Were any procedures done? @ -No Diagnosis/symptom? @ -Headache Acute, or Chronic, or Acute on Chronic? @ -Acute Uncomplicated (without systemic symptoms) or Complicated (systemic symptoms)? @ -Default Side effects of treatment? @ -No Exacerbation, Progression, or Severe Exacerbation? @ -No Poses a threat to life or bodily function? How? (Chest pain, [place], NE, pneumonia, PE, COPD, DKA, ARF, appy, cholecystitis, CVA, Diverticulitis, Homicidal, Suicidal, threat to staff... and all critical care pts) @ -No - Lab Data Result diagrams: 07/17/24 07:24 07/17/24 07:24 Lab Results 07/17/24 07/17/24 07/17/24 Range/Units 07:24 07:24 07:24 WBC 4.7 (3.8-10.6) k/uL RBC 4.74 (3.80-5.40) m/uL Hgb 14.2 (11.4-16.0) gm/dL Hct 41.3 (34.0-46.0) % MCV 87.1 (80.0-100.0) fL MCH 30.0 (25.0-35.0) pg MCHC 34.4 (31.0-37.0) g/dL RDW 11.8 (11.5-15.5) % Plt Count 229 (150-450) k/uL MPV 6.7 Neutrophils % 61 % Lymphocytes % 29 % Monocytes % 7 % Eosinophils % 1 % Basophils % 1 % Neutrophils # 2.9 (1.3-7.7) k/uL Lymphocytes # 1.4 (1.0-4.8) k/uL Monocytes # 0.3 (0-1.0) k/uL Eosinophils # 0.0 (0-0.7) k/uL Basophils # 0.0 (0-0.2) k/uL Sodium 138 (137-145) mmol/L Potassium 4.3 (3.5-5.1) mmol/L Chloride 106 (98-107) mmol/L Carbon Dioxide 25 (22-30) mmol/L Anion Gap 7 mmol/L BUN 14 (7-17) mg/dL Creatinine 0.62 (0.52-1.04) mg/dL Est GFR (CKD-EPI)AfAm >90 (>60 ml/min/1.73 sqM) Est GFR (CKD-EPI)NonAf >90 (>60 ml/min/1.73 sqM) Glucose 104 H (74-99) mg/dL Calcium 8.9 (8.4-10.2) mg/dL Total Bilirubin 0.4 (0.2-1.3) mg/dL AST 32 (14-36) U/L ALT 37 H (4-34) U/L Alkaline Phosphatase 88 (38-126) U/L Total Protein 7.0 (6.3-8.2) g/dL Albumin 4.3 (3.5-5.0) g/dL Urine HCG, Qual Not Detected (Not Detectd) Influenza Type A (PCR) (Not Detectd) Influenza Type B (PCR) (Not Detectd) RSV (PCR) (Not Detectd) SARS-CoV-2 (PCR) (Not Detectd) 07/17/24 Range/Units 07:24 WBC (3.8-10.6) k/uL RBC (3.80-5.40) m/uL Hgb (11.4-16.0) gm/dL Hct (34.0-46.0) % MCV (80.0-100.0) fL MCH (25.0-35.0) pg MCHC (31.0-37.0) g/dL RDW (11.5-15.5) % Plt Count (150-450) k/uL MPV Neutrophils % % Lymphocytes % % Monocytes % % Eosinophils % % Basophils % % Neutrophils # (1.3-7.7) k/uL Lymphocytes # (1.0-4.8) k/uL Monocytes # (0-1.0) k/uL Eosinophils # (0-0.7) k/uL Basophils # (0-0.2) k/uL Sodium (137-145) mmol/L Potassium (3.5-5.1) mmol/L Chloride (98-107) mmol/L Carbon Dioxide (22-30) mmol/L Anion Gap mmol/L BUN (7-17) mg/dL Creatinine (0.52-1.04) mg/dL Est GFR (CKD-EPI)AfAm (>60 ml/min/1.73 sqM) Est GFR (CKD-EPI)NonAf (>60 ml/min/1.73 sqM) Glucose (74-99) mg/dL Calcium (8.4-10.2) mg/dL Total Bilirubin (0.2-1.3) mg/dL AST (14-36) U/L ALT (4-34) U/L Alkaline Phosphatase (38-126) U/L Total Protein (6.3-8.2) g/dL Albumin (3.5-5.0) g/dL Urine HCG, Qual (Not Detectd) Influenza Type A (PCR) Not Detected (Not Detectd) Influenza Type B (PCR) Not Detected (Not Detectd) RSV (PCR) Not Detected (Not Detectd) SARS-CoV-2 (PCR) Not Detected (Not Detectd) Disposition Clinical Impression: Headache Disposition: HOME SELF-CARE Condition: Stable Instructions (If sedation given, give patient instructions): Acute Headache (ED) Additional Instructions: Take [id number] ibuprofen and Tylenol for headache. Follow-up with PCP. Return to the ER for any new or worsening concerns. Prescriptions: Ondansetron Odt [Zofran Odt] 4 mg PO Q8HR PRN #10 tab PRN Reason: Nausea Is patient prescribed a controlled substance at d/c from ED?: No Referrals: Shanta Louie DO [Primary Care Provider] - 1-2 days Time of Disposition: 08:44
[2024-07-17] MEDS: ACETAMINOPHEN TAB 325 MG TAB PO STA (07:33)
[2024-07-17] MEDS: SODIUM CHLORIDE 0.9% 1,000 ML IV STA (07:34)
[2024-07-17 07:35] LABS: Basophils % (A) 1 %; Eosinophils % (A) 1 %; HCT 41.3 % (34.0-46.0); HGB 14.2 gm/dL (11.4-16.0); Lymphocytes # (A) 1.4 k/uL (1.0-4.8); Lymphocytes % (A) 29 %; MCHC 34.4 g/dL (31.0-37.0); MCV 87.1 fL (80.0-100.0); Mean Platelet Volume 6.7; Monocytes # (A) 0.3 k/uL (0-1.0); Monocytes % (A) 7 %; Neutrophils # (A) 2.9 k/uL (1.3-7.7); Neutrophils % (A) 61 %; Platelet Count 229 k/uL (150-450); RBC 4.74 m/uL (3.80-5.40); RDW 11.8 % (11.5-15.5); WBC 4.7 k/uL (3.8-10.6)
[2024-07-17] MEDS: METOCLOPRAMIDE 5 MG/ML 2 ML VIAL IVP STA (07:35)
[2024-07-17 07:44] LABS: ALT 37 U/L (4-34); African American GFR (CKD) >90 (>60 ml/min/1.73 sqM); Albumin 4.3 g/dL (3.5-5.0); Anion Gap 7 mmol/L; Blood Urea Nitrogen 14 mg/dL (7-17); Calcium 8.9 mg/dL (8.4-10.2); Carbon Dioxide 25 mmol/L (22-30); Chloride 106 mmol/L (98-107); Glucose 104 mg/dL (74-99); Non-African American GFR(CKD) >90 (>60 ml/min/1.73 sqM); Sodium 138 mmol/L (137-145); Total Bilirubin 0.4 mg/dL (0.2-1.3)
[2024-07-17 07:49] LABS: AST 32 U/L (14-36); Alkaline Phosphatase 88 U/L (38-126); Potassium 4.3 mmol/L (3.5-5.1)
[2024-07-17 08:50] VITALS: BP 115/59; PULSE 62; RESP 16; TEMP 98.1
== END 2024-07-17 08:51 | disposition home or self-care (01) ==
LOC: EC 06:40
DX: R51.9 Headache, unspecified (principal); Z87.891 Personal history of nicotine dependence
CPT/HCPCS: 36415; 80053; 85025; 81025; 87636; 99284; 96374; 96361; J2765